=== PATIENT | female | born 1955 | race Caucasian/White ===

== ENCOUNTER → 2017-03-05 | Outpatient (CLI) | payer OTHER | LOC: FIMAGING 15:41 | PROVIDERS: ATTEND Family Medicine | DX: Z12.31 Encounter for screening mammogram for malignant neoplasm of breast (principal) | CPT/HCPCS: G0202 ==

== ENCOUNTER → 2017-03-12 | Outpatient (CLI) | payer OTHER | LOC: FIMAGING 09:33 | PROVIDERS: ATTEND Family Medicine | DX: D25.1 Intramural leiomyoma of uterus (principal); N85.00 Endometrial hyperplasia, unspecified; N83.201 Unspecified ovarian cyst, right side ==

== ENCOUNTER → 2017-11-30 | Outpatient (CLI) | payer OTHER | LOC: FIMAGING 09:19 | PROVIDERS: ATTEND Family Medicine | DX: K76.0 Fatty (change of) liver, not elsewhere classified (principal) ==